=== PATIENT | male | born 1955 | race Caucasian/White ===

== ENCOUNTER 2017-08-30 06:10 | Emergency (ER) | payer OTHER ==
[~2017-08-30] VITALS: Ht 180.3 cm; Wt 104.3 kg
--- NOTE | 2017-08-30 06:16 | NUR ---
PT TO ER BED 7. PT BIBRA C/O NOSE BLEED X 3 HOURS. PT PLACED ON RN FLIGHT. VSS/RESP EVEN UNLABORED/NAD NOTED/SKIN WARM AND DRY/AOX4. AWAITING MD TSE.
[2017-08-30] MEDS ORDERED: SILVER NITRATE APPLICATOR 1 EA BOX ONE (06:18)
[2017-08-30] MEDS ORDERED: OXYMETAZOLINE HCL NASAL SPRAY 30 ML BOTTLE NS ONE ×2 (06:18→06:30)
--- NOTE | 2017-08-30 06:20 | NUR ---
MD MADE AWARE OF PT B/P, NO NEW ORDERS RECEIVED.
[2017-08-30 06:29] LABS: BASOPHILS % (AUTO) 0.6 % (0.0-2.0); EOSINOPHILS # (AUTO) 0.1 /CMM (0.0-0.7); EOSINOPHILS % (AUTO) 0.9 % (0.0-6.0); HEMATOCRIT 42 % (39-51); HEMOGLOBIN 14.1 g/dL (13.5-17.5); LYMPHOCYTES # (AUTO) 1.9 /CMM (0.8-4.8); LYMPHOCYTES % (AUTO) 25.8 % (20.0-44.0); MEAN CORPUSCULAR HEMOGLOBIN 29 PG (26.0-33.0); MEAN CORPUSCULAR HGB CONC 34 g/dl (31.0-36.0); MEAN CORPUSCULAR VOLUME 86 fL (80-96); MONOCYTES # (AUTO) 0.6 /CMM (0.1-1.30); MONOCYTES % (AUTO) 8.2 % (2.0-12.0); NEUTROPHILS # (AUTO) 4.6 /CMM (1.8-8.9); NEUTROPHILS % (AUTO) 64.5 % (43.0-81.0); PLATELET COUNT (AUTO) 424 /CMM (150-450); RDW COEFFICIENT OF VARIATION 13.4 (11.5-15.0); RED BLOOD CELL COUNT(AUTO) 4.82 MIL/uL (4.5-6.0); WHITE BLOOD COUNT (AUTO) 7.2 K/uL (4.3-11.0)
[2017-08-30] MEDS ORDERED: SILVER NITRATE APPLICATOR 1 EA BOX TP ONE (06:30)
--- NOTE | 2017-08-30 06:30 | NUR ---
AT BEDSIDE FOR EVAL.
[2017-08-30 06:46] LABS: INR 0.96 (0.87-1.13)
--- NOTE | 2017-08-30 06:50 | NUR ---
AT BEDSIDE FOR PROCEDURE.
[2017-08-30 06:52] LABS: CALCIUM, SERUM 8.8 mg/dL (8.5-10.1); POTASSIUM 3.5 mmol/L (3.5-5.1)
--- NOTE | 2017-08-30 07:30 | NUR ---
REPORT GIVEN TO DIEUDONNE NUÑEZ FOR MANNY.
--- NOTE | 2017-08-30 07:30 | NUR ---
RECEIVED REPORT FOR MANNY.
[2017-08-30] MEDS ORDERED: AMLODIPINE BESYLATE 5 MG TABLET ONE (08:26)
[2017-08-30] MEDS ORDERED: AMLODIPINE BESYLATE 5 MG TABLET PO ONE (08:30)
--- NOTE | 2017-08-30 08:50 | NUR ---
Patient left AMA to home in stable condition. Patient signed AMA form. Written and verbal after care instructions given. Patient verbalizes understanding of instruction.
[2017-08-30 08:56] VITALS: BP 182/116
== END 2017-08-30 08:56 | disposition left against medical advice (07) ==
LOC: ER 06:12
DX: R04.0 Epistaxis (principal); I10 Essential (primary) hypertension; N17.9 Acute kidney failure, unspecified; Z53.20 Procedure and treatment not carried out because of patient's decision for unspecified reasons
CPT/HCPCS: 30901; 36415; 80048; 85025; 85610; 99284; A4606; Z7610